=== PATIENT | male | born 1955 | race Caucasian/White ===

== ENCOUNTER 2024-07-24 14:51 | Inpatient (IN) | payer MEDICARE, BC ==
[~2024-07-24] VITALS: Ht 188 cm; Wt 98.4 kg
[2024-07-24] MEDS ORDERED: DILT30TA35 PO (21:11)
[2024-07-24] MEDS ORDERED: HYDR1LIQ IVP (21:11)
[2024-07-24] MEDS ORDERED: HYDR20VI6 IV (21:11)
[2024-07-24] MEDS ORDERED: SOTA80TA26 PO (21:11)
[2024-07-24] MEDS ORDERED: BISA10SU61 RC (21:11)
[2024-07-24] MEDS ORDERED: ACET-637 PO (21:11)
[2024-07-24] MEDS ORDERED: QUET25TA PO (21:11)
[2024-07-24] MEDS ORDERED: [UNRECOGNIZED DRUG - CODE] MM (21:11)
[2024-07-24] MEDS ORDERED: MAG355OR18 PO (21:11)
[2024-07-24] MEDS ORDERED: LEVE1000 PO (21:11)
[2024-07-24] MEDS ORDERED: FOLI1TAB94 PO (21:11)
[2024-07-24] MEDS ORDERED: DIPH25CA83 PO (21:11)
[2024-07-24] MEDS ORDERED: HEPA500034 SQ (21:11)
[2024-07-24] MEDS ORDERED: POLY17PO4 PO (21:11)
[2024-07-24] MEDS ORDERED: TRAZ-182 PO (21:11)
[2024-07-24] MEDS ORDERED: ASCO-495 PO (21:11)
[2024-07-24] MEDS ORDERED: ZINC220T3 PO (21:11)
[2024-07-24] MEDS ORDERED: MAGN400O6 PO (21:11)
[2024-07-24] MEDS ORDERED: OXYC5TAB3 PO (21:11)
[2024-07-24] MEDS ORDERED: PROC5TAB56 PO (21:11)
[2024-07-24] MEDS ORDERED: SENN-18 PO (21:11)
[2024-07-24] MEDS ORDERED: PHEN177S31 PO (21:11)
[2024-07-24] MEDS ORDERED: PHEN100C4 PO (21:11)
[2024-07-24] MEDS ORDERED: LEVO75TA7 PO (21:11)
[2024-07-24] MEDS ORDERED: FAMO20VI10 IV (21:11)
[2024-07-24] MEDS ORDERED: MELA3CAP2 PO (21:11)
[2024-07-24 21:41] VITALS: BP 132/77; TEMP 98.8; O2SAT 96
[2024-07-24] MEDS ORDERED: REMEDY ESSENTIAL ZINC PASTE 113 GM TOP PRN (21:45)
[2024-07-24] MEDS ORDERED: HYDROMORPHONE 1 MG/1 ML DISP.SYRIN IV PRN (22:15)
[2024-07-25] MEDS: QUETIAPINE FUMARATE 25 MG TABLET PO PRN (00:52)
[2024-07-25] MEDS: MELATONIN 3 MG TABLET PO PRN (00:52)
[2024-07-25] MEDS: OXYCODONE HCL 5 MG TABLET PO PRN (00:52)
[2024-07-25] MEDS ORDERED: HYDROMORPHONE 1 MG/1 ML DISP.SYRIN IV PRN (05:30)
[2024-07-25 06:00] VITALS: BP 123/80; TEMP 98.4; O2SAT 96
[2024-07-25] MEDS ORDERED: QUETIAPINE FUMARATE 25 MG TABLET PO PRN (07:15)
[2024-07-25] MEDS ORDERED: OXYCODONE HCL 5 MG TABLET PO PRN (07:15)
[2024-07-25] MEDS ORDERED: diphenhydrAMINE 25 MG CAP PO PRN (07:15)
[2024-07-25] MEDS ORDERED: SENNOSIDES 1 TABLET PO PRN (07:15)
[2024-07-25] MEDS ORDERED: MAGNESIUM HYDROXIDE 30 ML LIQUID UDC PO PRN (07:15)
[2024-07-25] MEDS ORDERED: BISACODYL 10 MG SUPP.RECT RC PRN (07:15)
[2024-07-25] MEDS ORDERED: LEVOTHYROXINE SODIUM 75 MCG TABLET PO SCH (07:44)
[2024-07-25] MEDS: ZINC SULFATE 220 MG CAPSULE PO SCH (08:04)
[2024-07-25] MEDS: FAMOTIDINE 20 MG TABLET PO SCH (08:05)
[2024-07-25] MEDS: levETIRAcetam 500 MG TABLET PO ONE (08:05)
[2024-07-25] MEDS: ASCORBIC ACID 500 MG TABLET PO SCH (08:05)
[2024-07-25] MEDS: HEPARIN SODIUM,PORCINE 5,000 UNITS/ML VIAL SQ SCH (08:11)
[2024-07-25] MEDS ORDERED: ASCORBIC ACID PO SCH (09:00)
[2024-07-25] MEDS ORDERED: Medication Not On Formulary EA (Zinc Sulfate (Zinc) 1 TAB) PO SCH (09:00)
[2024-07-25] MEDS ORDERED: FOLIC ACID 1 MG TABLET PO SCH (09:00)
[2024-07-25] MEDS: PHENYTOIN SODIUM EXTENDED 100 MG CAPSULE.SA PO ONE (09:43)
[2024-07-25] MEDS: LEVOTHYROXINE SODIUM 75 MCG TABLET PO SCH (11:45)
[2024-07-25] MEDS: FOLIC ACID 1 MG TABLET PO SCH (11:45)
[2024-07-25] MEDS: ACETAMINOPHEN 325 MG TABLET PO PRN (11:48)
[2024-07-25] MEDS: DILTIAZEM HCL 30 MG TABLET PO SCH (14:40)
[2024-07-25] MEDS: PHENYTOIN SODIUM EXTENDED 100 MG CAPSULE.SA PO SCH (14:40)
[2024-07-25 15:04] VITALS: BP 137/89; TEMP 98.3; O2SAT 98
[2024-07-25 19:54] VITALS: BP 128/78; TEMP 97.8; O2SAT 97
[2024-07-25] MEDS: levETIRAcetam 500 MG TABLET PO SCH (20:12)
[2024-07-25] MEDS: TRAZODONE 50 MG TABLET PO SCH (20:12)
[2024-07-25] MEDS: SOTALOL HCL 80 MG TABLET PO SCH (20:14)
[2024-07-25] MEDS ORDERED: ZOLPIDEM 5 MG TABLET PO PRN (22:30)
[2024-07-26 06:18] VITALS: BP 132/79; TEMP 97.9; O2SAT 96
[2024-07-26 07:31] LABS: BASOPHILS # (AUTO) 0.1 K/UL (0.0-0.2); BASOPHILS % (AUTO) 1.1 % (0.0-2.0); EOSINOPHILS # (AUTO) 0.1 K/uL (0.0-0.7); EOSINOPHILS % (AUTO) 1.9 % (0.0-7.0); HEMATOCRIT 33.6 % (36.7-47.1); HEMOGLOBIN 11.3 g/dL (12.5-16.3); LYMPHOCYTES # (AUTO) 2.2 K/uL (0.8-4.8); LYMPHOCYTES % (AUTO) 26.9 % (20.5-51.5); MEAN CORPUSCULAR HEMOGLOBIN 28.7 uug (23.8-33.4); MEAN CORPUSCULAR HGB CONC 34 g/dL (32.5-36.3); MEAN CORPUSCULAR VOLUME 85.2 fL (73.0-96.2); MONOCYTES # (AUTO) 0.9 K/uL (0.1-1.30); NEUTROPHILS # (AUTO) 4.7 K/uL (1.8-8.9); NEUTROPHILS % (AUTO) 59.1 % (38.5-71.5); PLATELET COUNT (AUTO) 303 K/uL (152-348); RED BLOOD CELL COUNT(AUTO) 3.94 MIL/uL (4.06-5.63); RED CELL DISTRIBUTION WIDTH 16.6 % (12.1-16.2)
[2024-07-26 07:40] LABS: DIFFERENTIAL COMMENT 1
[2024-07-26 07:59] LABS: THYROID STIMULATING HORMONE 1.168 mIU/mL (0.358-3.740)
[2024-07-26 08:14] LABS: ALBUMIN 2.9 g/dL (3.4-5.0); BILIRUBIN,TOTAL 0.2 mg/dL (0.2-1.0); MAGNESIUM 2.2 mg/dL (1.8-2.4); PHENYTOIN (DILANTIN) 3.6 ug/mL (10.0-20.0); PHOSPHOROUS 4.2 mg/dL (2.5-4.9); POTASSIUM 4.5 mmol/L (3.5-5.1)
[2024-07-26] MEDS ORDERED: LEVOTHYROXINE SODIUM 75 MCG TABLET PO SCH (11:00)
[2024-07-26 16:07] VITALS: BP 121/75; TEMP 98.5; O2SAT 96
[2024-07-26 20:00] VITALS: TEMP 99.4
[2024-07-27 06:00] VITALS: BP 105/61; TEMP 98.4; O2SAT 97
[2024-07-27 08:44] VITALS: BP 105/61
== END 2024-07-27 15:25 | disposition home health service (06) | DRG 950 ==
PROVIDERS: ADMIT Physical Medicine & Rehabilitation Pain Medicine; ATTEND Physical Medicine & Rehabilitation Pain Medicine
DX: Z48.811 Encounter for surgical aftercare following surgery on the nervous system (principal); I69.198 Other sequelae of nontraumatic intracerebral hemorrhage; E03.9 Hypothyroidism, unspecified; I48.0 Paroxysmal atrial fibrillation; K21.9 Gastro-esophageal reflux disease without esophagitis; E07.9 Disorder of thyroid, unspecified
CPT/HCPCS: 36415; 83735; 84100; 84443; 85025; J1644